=== PATIENT | female | born 1965 | race Caucasian/White ===

== ENCOUNTER 2020-10-08 20:31 | Observation (INO) | payer BC ==
[2020-10-08] MEDS ORDERED: NITROGLYCERIN OINT 1 INCH/GM PACKET TOPICAL STA (20:38)
[2020-10-08] MEDS ORDERED: SODIUM CHLORIDE 0.9% 1,000 ML IV STA (20:38)
--- NOTE | 2020-10-08 20:47 | ED ---
Chest Pain HPI - General Stated Complaint: Chest Pain Time Seen by Provider: 10/08/20 20:31 Source: patient, EMS, RN notes reviewed Mode of arrival: EMS Limitations: no limitations - History of Present Illness Initial Comments: This is a 54-year-old female who presents by EMS complaints of the onset of midsternal chest pain sharp and stabbing in nature 10/10 severity rating to her left shoulder left arm and now to the back. He was given aspirin and sublingual nitroglycerin did improve to about 6/10 no fevers chills cough nausea vomiting or other symptoms she states she has similar symptoms in the past that normally get better with nitro she had a workup for GI and cardiac etiologies the past without cardiac catheterization. He states the etiology was never established. No recent trauma no other complaints she states she just finished dinner when this happened. MD Complaint: chest pain - Related Data Home Medications Medication Instructions Recorded Confirmed ALPRAZolam [Xanax] 0.5 mg PO DAILY PRN 10/08/20 10/08/20 ALPRAZolam [Xanax] 1 mg PO HS 10/08/20 10/08/20 Amitriptyline HCl [Elavil] 75 mg PO HS 10/08/20 10/08/20 DULoxetine HCL [Cymbalta] 60 mg PO HS 10/08/20 10/08/20 Levothyroxine Sodium [Synthroid] 50 mcg PO DAILY 10/08/20 10/08/20 QUEtiapine FUMARATE [SEROquel] 400 mg PO HS 10/08/20 10/08/20 bisacodyL [Dulcolax] 5 mg PO DAILY PRN 10/08/20 10/08/20 metFORMIN HCL ER [Glucophage Xr] 500 mg PO BID 10/08/20 10/08/20 Allergies Allergy/AdvReac Type Severity Reaction Status Date / Time No Known Allergies Allergy Verified 10/08/20 21:18 Review of Systems ROS Statement: Those systems with pertinent positive or pertinent negative responses have been documented in the HPI. ROS Other: All systems not noted in ROS Statement are negative. EKG Findings - EKG Results: EKG: interpreted by DIANA, WNL, sinus rhythm (Normal sinus rhythm was 87 [place] interval 156 QRS 82 QT since QTC 380/[address]-T wave changes.), normal axis, normal QRS, normal ST/T Past Medical History Past Medical History: Diabetes Mellitus Additional Past Medical History / Comment(s): IBS History of Any Multi-Drug Resistant Organisms: None Reported Past Surgical History: Section, Cholecystectomy, Tonsillectomy Past Psychological History: Anxiety, Depression Smoking Status: Never smoker Past Alcohol Use History: Occasional Past Drug Use History: None Reported General Exam - General Exam Comments Initial Comments: This is a well-developed well-nourished awake alert oriented 3 female Limitations: no limitations General appearance: alert, anxious Head exam: Present: atraumatic, normocephalic, normal inspection Eye exam: Present: normal appearance, PERRL, EOMI. Absent: scleral icterus, conjunctival injection, periorbital swelling ENT exam: Present: normal exam, mucous membranes moist Neck exam: Present: normal inspection, full ROM, other (No stridor JVD or bruits). Absent: tenderness, meningismus, lymphadenopathy Respiratory exam: Present: normal lung sounds bilaterally, other ((Anterior chest patient states she feels some discomfort in the back area.). Absent: respiratory distress, wheezes, rales, rhonchi, stridor Cardiovascular Exam: Present: regular rate, normal rhythm, normal heart sounds. Absent: systolic murmur, diastolic murmur, rubs, gallop, clicks GI/Abdominal exam: Present: soft, normal bowel sounds. Absent: distended, tenderness, guarding, rebound, rigid, bruit, pulsatile mass Extremities exam: Present: full ROM, normal capillary refill, other (A small brown tick was noted on the posterior aspect of the right shoulder I did remove this without difficulty. No evidence of any retained foreign matter.). Absent: tenderness, pedal edema, joint swelling, calf tenderness Back exam: Present: normal inspection Neurological exam: Present: alert, oriented X3, CN II-XII intact Psychiatric exam: Present: normal affect, normal mood Skin exam: Present: warm, dry, intact, normal color. Absent: rash Course Vital Signs 10/08/20 10/08/20 20:33 21:36 Temperature 98.0 F Pulse Rate 86 85 Respiratory 20 18 Rate Blood Pressure 109/79 128/79 O2 Sat by Pulse 98 99 Oximetry - Reevaluation(s) Reevaluation #1: 10/08/20 22:25 Patient saw somewhat better but still has some burning chest discomfort. This workup is negative. I did discuss [employer] her she will be admitted with cardiology consultation. Chest Pain MDM - MDM Imaging reviewed no acute findings. The presentation of far is negative for acute findings however the symptoms are consistent with angina. Patient be admitted case discussed with Dr. Mcpherson Critical Care Time Critical Care Time: Yes Total Critical Care Time: 31 Critical Care Time: Consistent with an initial presentation with history physical labs x-rays discussed with paramedics upon arrival reevaluation the patient response to therapy discuss with the patient regarding findings discussion with the main physician admission orders documentation of the above Disposition Clinical Impression: Unstable angina pectoris, Chest pain, Tick bite with subsequent removal of tick Disposition: ADMITTED IP TO THIS HOSP Condition: Fair Referrals: Liu Singh DO [Primary Care Provider] - 1-2 days
[2020-10-08 21:02] LABS: Basophils # (A) 0.1 k/uL (0-0.2); Basophils % (A) 1 %; Eosinophils # (A) 0.3 k/uL (0-0.7); Eosinophils % (A) 3 %; HCT 41.7 % (34.0-46.0); HGB 14.5 gm/dL (11.4-16.0); Lymphocytes # (A) 3.3 k/uL (1.0-4.8); Lymphocytes % (A) 38 %; MCH 29.3 pg (25.0-35.0); MCHC 34.7 g/dL (31.0-37.0); MCV 84.6 fL (80.0-100.0); Mean Platelet Volume 8.1; Monocytes # (A) 0.5 k/uL (0-1.0); Monocytes % (A) 6 %; Neutrophils # (A) 4.2 k/uL (1.3-7.7); Neutrophils % (A) 49 %; Platelet Count 277 k/uL (150-450); RBC 4.94 m/uL (3.80-5.40); RDW 13.5 % (11.5-15.5); WBC 8.5 k/uL (3.8-10.6)
--- NOTE | 2020-10-08 21:07 | XR ---
EXAMINATION TYPE: XR chest 2V DATE OF EXAM: 10/08/2020 COMPARISON: NONE HISTORY: Chest pain TECHNIQUE: 2 views FINDINGS: Heart and mediastinum are normal. Lungs are clear. Diaphragm is normal. Bony thorax is inta ct. IMPRESSION: Normal chest. Normal heart.
[2020-10-08 21:21] LABS: ALT 31 U/L (4-34); AST 86 U/L (14-36); African American GFR (CKD) >90 (>60 ml/min/1.73 sqM); Albumin 4.7 g/dL (3.5-5.0); Alkaline Phosphatase 75 U/L (38-126); Anion Gap 6 mmol/L; Blood Urea Nitrogen 24 mg/dL (7-17); Calcium 9.6 mg/dL (8.4-10.2); Carbon Dioxide 28 mmol/L (22-30); Chloride 104 mmol/L (98-107); Creatine Kinase 85 U/L (30-135); Glucose 125 mg/dL (74-99); Lipase 204 U/L (23-300); Magnesium 2.3 mg/dL (1.6-2.3); Non-African American GFR(CKD) >90 (>60 ml/min/1.73 sqM); Potassium 5.9 mmol/L (3.5-5.1); Sodium 138 mmol/L (137-145); Total Bilirubin 1.2 mg/dL (0.2-1.3); Total Protein 7.5 g/dL (6.3-8.2)
[2020-10-08 21:55] LABS: D-Dimer 0.19 mg/L FEU (<0.60); INR 0.9 (<1.2); Partial Thromboplastin Time 22.4 sec (22.0-30.0)
[2020-10-08] MEDS ORDERED: HEPARIN SODIUM 1,000 UN/ML (10ML VL) IV ONE (22:28)
[2020-10-08] MEDS ORDERED: NITROGLYCERIN SL TABS 0.4 MG TAB SUBLINGUAL PRN (22:28)
[2020-10-08] MEDS ORDERED: bisacodyL 5 MG TABLET.DR PO PRN (22:32)
[2020-10-08] MEDS ORDERED: ALPRAZolam 0.5 MG TAB PO PRN (22:32)
[2020-10-08] MEDS ORDERED: HEPARIN SOD,PORK IN 0.45% NACL 25,000 UNIT in 0.45% NACL 1 250ML.BAG IV SCH (22:45)
--- NOTE | 2020-10-08 23:48 | P.HPIM ---
History of Present Illness H&P Date: 10/08/20 Patient is a 54-year-old female with a PMH of anxiety, depression, type II DM, and hypothyroidism who presented to the emergency room with complaints of chest discomfort. The patient reports that she was in her usual state of health until about 6 PM tonight when she was sitting down watching television and suddenly developed sharp substernal discomfort. There was a pleuritic component to the pain, 10 out of 10, radiating to the left arm, constant, with no alleviating factors. The patient reports that her activated EMS 10 minutes after the onset of her pain since it was not going away. In the ambulance, she was given aspirin and nitroglycerin which she reports significantly relieved her pain which subsequently did not recur. She denied experiencing shortness of breath, nausea, vomiting, diaphoresis, dizziness. At time of interview, she reported no additional pain and had no additional complaints. Denied leg pain, leg swelling, recent travel, fever, chills, cough, abdominal pain, diarrhea. Denied history of blood clots. In the emergency room and EKG revealed normal sinus rhythm at [address]/T-wave changes noted as reviewed by me. Chest x-ray was unremarkable. Laboratory evaluation was remarkable for a potassium of 5.9, BUN 24, glucose 125, AST 86, and troponin 0.017. Review of Systems Pertinent positives and negatives as discussed in HPI, a complete review of systems was performed and all other systems are negative. Past Medical History Past Medical History: Diabetes Mellitus Additional Past Medical History / Comment(s): IBS History of Any Multi-Drug Resistant Organisms: None Reported Past Surgical History: Section, Cholecystectomy, Tonsillectomy Past Psychological History: Anxiety, Depression Smoking Status: Never smoker Past Alcohol Use History: Occasional Past Drug Use History: None Reported Medications and Allergies Home Medications Medication Instructions Recorded Confirmed Type ALPRAZolam [Xanax] 0.5 mg PO DAILY PRN 10/08/20 10/08/20 History ALPRAZolam [Xanax] 1 mg PO HS 10/08/20 10/08/20 History Amitriptyline HCl [Elavil] 75 mg PO HS 10/08/20 10/08/20 History DULoxetine HCL [Cymbalta] 60 mg PO HS 10/08/20 10/08/20 History Levothyroxine Sodium [Synthroid] 50 mcg PO DAILY 10/08/20 10/08/20 History QUEtiapine FUMARATE [SEROquel] 400 mg PO HS 10/08/20 10/08/20 History bisacodyL [Dulcolax] 5 mg PO DAILY PRN 10/08/20 10/08/20 History metFORMIN HCL ER [Glucophage Xr] 500 mg PO BID 10/08/20 10/08/20 History Allergies Allergy/AdvReac Type Severity Reaction Status Date / Time No Known Allergies Allergy Verified 10/08/20 21:18 Physical Exam Vitals: Vital Signs Temp Pulse Resp BP Pulse Ox 10/08/20 22:58 85 16 121/72 96 10/08/20 21:36 85 18 128/79 99 10/08/20 20:33 98.0 F 86 20 109/79 98 Intake and Output 10/08/20 10/08/20 10/09/20 14:59 22:59 06:59 Other: Weight 99.79 kg General: non toxic, no distress, appears at stated age, obese Derm: no unusual rashes/lesions no unusual ecchymoses, warm, dry Head: atraumatic, normocephalic, symmetric Eyes: EOMI, no lid lag, anicteric sclera, pupils equal round reactive to light ENT: Nose and ears atraumatic, no thrush, no pharyngeal erythema Neck: No thyromegaly, no cervical lymphadenopathy, trachea midline, supple Mouth: no lip lesion, mucus membranes moist Cardiovascular: S1S2 reg, no murmur, positive posterior tibial pulse bilateral, no edema, capillary refill less than 2 seconds, no chest wall tenderness on palpation Lungs: CTA bilateral, no rhonchi, no rales , no accessory muscle use Abdominal: soft, nontender to palpation, no guarding, no appreciable organomegaly, normal bowel sounds Ext: no gross muscle atrophy, muscle strength 5 out of 5 in all 4 extremities grossly, no contractures, Neuro: CN II-XI grossly intact, light touch intact all 4 extremities, finger to nose within normal limits, Psych: Alert, oriented, appropriate affect Results CBC & Chem 7: 10/08/20 20:45 10/08/20 20:45 Labs: Abnormal Lab Results - Last 24 Hours (Table) 10/08/20 Range/Units 20:45 Potassium 5.9 H (3.5-5.1) mmol/L BUN 24 H (7-17) mg/dL Glucose 125 H (74-99) mg/dL AST 86 H (14-36) U/L Assessment and Plan Plan: Unstable angina -Cardiology consult -Trend troponin -Cardiac monitoring -Continue with aspirin and Heparin infusion -Blood pressure within normal limits Hyperkalemia -Administer calcium gluconate and Kayexalate -Monitor for now Chronic conditions: Hypothyroidism, depression, Type II DM -Continue with home meds -Check A1c -Hold oral hypoglycemic -Lispro insulin sliding scale with blood glucose monitoring DVT prophylaxis -Heparin infusion The patient is admitted with an anticipated less than 2 midnight stay for evaluation of chest pain CODE STATUS: Full Code Discussed with: Patient Anticipated discharge date: in am Anticipated discharge place: Home A total of 35 minutes was spent on the care of this complex patient more than 50% of the time was spent in counseling and care coordination.
[2020-10-08] MEDS ORDERED: SODIUM POLYSTYRENE SULFONATE 15 GM/60 ML BOTTLE PO ONE (23:59)
[2020-10-09] MEDS ORDERED: CALCIUM GLUCONATE 1 GM in SODIUM CHLORIDE 0.9% 100 ML IVPB ONE (00:15)
[2020-10-09] MEDS: SODIUM CHLORIDE 0.9% 1,000 ML IV SCH ×2 (00:30→20:37)
[2020-10-09] MEDS: DULoxetine HCL 60 MG CAPSULE.DR PO SCH ×2 (00:31→20:36)
[2020-10-09] MEDS: AMITRIPTYLINE HCL 25 MG TAB PO SCH ×2 (00:31→20:36)
[2020-10-09] MEDS: ALPRAZolam 1 MG TAB PO SCH ×2 (00:31→20:37)
[2020-10-09] MEDS: QUEtiapine 400 MG TAB PO SCH ×2 (00:32→20:36)
[2020-10-09] MEDS: NITROGLYCERIN OINT 1 INCH/GM PACKET TOPICAL SCH ×4 (03:20→20:35)
[2020-10-09] MEDS: LEVOTHYROXINE 50 MCG TAB PO SCH (05:38)
[2020-10-09 05:54] LABS: African American GFR (CKD) >90 (>60 ml/min/1.73 sqM); Anion Gap 3 mmol/L; Blood Urea Nitrogen 19 mg/dL (7-17); Carbon Dioxide 28 mmol/L (22-30); Chloride 107 mmol/L (98-107); Cholesterol 171 mg/dL (<200); Glucose 107 mg/dL (74-99); HDL Cholesterol 42 mg/dL (40-60); LDL Cholesterol,Calculated 115 mg/dL (0-99); Non-African American GFR(CKD) 85 (>60 ml/min/1.73 sqM); Potassium 4.1 mmol/L (3.5-5.1); Sodium 138 mmol/L (137-145); Triglycerides 69 mg/dL (<150)
[2020-10-09] MEDS ORDERED: HEPARIN SODIUM 1,000 UN/ML (10ML VL) IV PRN (06:03)
[2020-10-09 07:13] LABS: Glucose,Whole Blood 99 mg/dL (75-99)
[2020-10-09] MEDS: ASPIRIN 325 MG TAB PO SCH (08:38)
--- NOTE | 2020-10-09 08:52 | P.CRDCN ---
History of Present Illness Consult date: 10/09/20 History of present illness: This is a 55-year-old female with history of anxiety, depression, type 2 diabetes mellitus who went on metformin recently, came to the hospital with complaints of chest pain. The pain was in the midsternal area and sharp in nature. There is some radiation of the pain to the left arm. It was not respirophasic. 10 minutes of the onset of the pain, as well as apparently activated EMS. Patient was given aspirin and nitroglycerin in the ambulance with which she got relief of pain. Since then patient hasn't had any recurrence of pain. Her EKGs did not reveal any acute changes and cardiac enzymes have been negative. No history of previous myocardial infarctions. Patient did have some similar chest discomfort in the past but never had any stress tests. She was given some J crackles in the past. She is not a smoker. Some family history of ischemic heart disease in grandparents. At this point patient him up. Patient is going to be evaluated by echocardiogram. She will have a stress echocardiogram tomorrow. Further recommendations depend upon the findings on the above tests. Review of Systems As per the chart Past Medical History Past Medical History: Diabetes Mellitus Additional Past Medical History / Comment(s): IBS, hypothyroidism, vertigo History of Any Multi-Drug Resistant Organisms: None Reported Past Surgical History: Section, Hysterectomy, Tonsillectomy Past Psychological History: Anxiety, Depression Smoking Status: Never smoker Past Alcohol Use History: Occasional Past Drug Use History: None Reported Medications and Allergies Home Medications Medication Instructions Recorded Confirmed Type ALPRAZolam [Xanax] 0.5 mg PO DAILY PRN 10/08/20 10/08/20 History ALPRAZolam [Xanax] 1 mg PO HS 10/08/20 10/08/20 History Amitriptyline HCl [Elavil] 75 mg PO HS 10/08/20 10/08/20 History DULoxetine HCL [Cymbalta] 60 mg PO HS 10/08/20 10/08/20 History Levothyroxine Sodium [Synthroid] 50 mcg PO DAILY 10/08/20 10/08/20 History QUEtiapine FUMARATE [SEROquel] 400 mg PO HS 10/08/20 10/08/20 History bisacodyL [Dulcolax] 5 mg PO DAILY PRN 10/08/20 10/08/20 History metFORMIN HCL ER [Glucophage Xr] 500 mg PO BID 10/08/20 10/08/20 History Allergies Allergy/AdvReac Type Severity Reaction Status Date / Time No Known Allergies Allergy Verified 10/08/20 21:18 Physical Exam Vitals: Vital Signs Temp Pulse Pulse Resp BP BP Pulse Ox 10/09/20 06:50 98.1 F 76 14 108/68 99 10/09/20 02:30 98.2 F 73 16 102/67 98 10/08/20 23:30 98.4 F 85 17 111/66 99 10/08/20 22:58 85 16 121/72 96 10/08/20 21:36 85 18 128/79 99 10/08/20 20:33 98.0 F 86 20 109/79 98 Intake and Output 10/08/20 10/09/20 10/09/20 22:59 06:59 14:59 Intake Total 71.833 Balance 71.833 Intake: Intake, IV Titration 71.833 Amount Heparin Sod,Pork in 0.45% 71.833 NaCl 25,000 unit In 0.45 % NaCl 1 250ml.bag @ 10. 021 UNITS/KG/HR 10 mls/hr IV .Q24H [facility] Rx#: [id number] Other: Voiding Method Toilet # Voids 1 Weight 99.79 kg 99.79 kg GENERAL EXAM: Patient is alert and oriented and doesn't appear to be in any acute distress HEENT: Normocephalic. Normal reaction of pupils, equal size, normal range of extraocular motion. No erythema or exudates in the throat. NECK: No masses, no nuchal rigidity. CHEST: No chest wall deformity. LUNGS: Equal air entry with no crackles or wheeze. HEART: S1 and S2 normal with no audible mumurs or gallops. Regular rhythm, femorals equal on both sides.. ABDOMEN: No hepatosplenomegaly, normal bowel sounds, no guarding or rigidity. SKIN: No rashes CENTRAL NERVOUS SYSTEM: No focal deficits. EXTREMITIES: No cyanosis, clubbing or edema. Results 10/08/20 20:45 10/09/20 04:32 Cardiac Enzymes 10/08/20 10/08/20 10/08/20 Range/Units 20:45 20:45 23:44 AST 86 H (14-36) U/L Troponin I 0.017 <0.012 (0.000-0.034) ng/mL 10/09/20 Range/Units 04:32 AST (14-36) U/L Troponin I <0.012 (0.000-0.034) ng/mL Coagulation 10/08/20 10/09/20 Range/Units 20:45 04:32 PT 10.0 (9.0-12.0) sec APTT 22.4 41.3 H (22.0-30.0) sec Lipids 10/09/20 Range/Units 04:32 Triglycerides 69 (<150) mg/dL Cholesterol 171 (<200) mg/dL HDL Cholesterol 42 (40-60) mg/dL CBC 10/08/20 Range/Units 20:45 WBC 8.5 (3.8-10.6) k/uL RBC 4.94 (3.80-5.40) m/uL Hgb 14.5 (11.4-16.0) gm/dL Hct 41.7 (34.0-46.0) % Plt Count 277 (150-450) k/uL Comprehensive Metabolic Panel 10/08/20 10/09/20 Range/Units 20:45 04:32 Sodium 138 138 (137-145) mmol/L Potassium 5.9 H 4.1 (3.5-5.1) mmol/L Chloride 104 107 (98-107) mmol/L Carbon Dioxide 28 28 (22-30) mmol/L BUN 24 H 19 H (7-17) mg/dL Creatinine 0.73 0.78 (0.52-1.04) mg/dL Glucose 125 H 107 H (74-99) mg/dL Calcium 9.6 9.0 (8.4-10.2) mg/dL AST 86 H (14-36) U/L ALT 31 (4-34) U/L Alkaline Phosphatase 75 (38-126) U/L Total Protein 7.5 (6.3-8.2) g/dL Albumin 4.7 (3.5-5.0) g/dL Current Medications Generic Name Dose Route Start Last Admin Trade Name Freq PRN Reason Stop Dose Admin Alprazolam 0.5 mg 10/08/20 22:32 Alprazolam 0.5 Mg Tab PO DAILY PRN Anxiety Alprazolam 1 mg 10/08/20 23:59 10/09/20 00:31 Alprazolam 1 Mg Tab PO 1 mg HS [facility] Administration Amitriptyline HCl 75 mg 10/08/20 23:59 10/09/20 00:31 Amitriptyline Hcl 25 Mg Tab PO 75 mg HS [facility] Administration Aspirin 325 mg 10/09/20 09:00 10/09/20 08:38 Aspirin 325 Mg Tab PO 325 mg DAILY [facility] Administration Bisacodyl 5 mg 10/08/20 22:32 Bisacodyl 5 Mg Tablet.Dr PO DAILY PRN Constipation Duloxetine HCl 60 mg 10/08/20 23:59 10/09/20 00:31 Duloxetine Hcl 60 Mg Capsule.Dr PO 60 mg HS [facility] Administration Heparin Sodium (Porcine) 0 unit 10/09/20 06:03 10/09/20 06:10 Heparin Sodium 1,000 Un/Ml (10ml Vl) IV 2,500 unit PER PROTOCOL PRN Administration Low PTT Protocol Sodium Chloride 1,000 mls @ 20 mls/hr 10/08/20 22:30 10/09/20 00:30 Saline 0.9% IV 20 mls/hr .Q24H [facility] Administration Heparin Sodium/Sodium Chloride 250 mls @ 10 mls/hr 10/08/20 22:45 10/09/20 06:01 25,000 unit/ Sodium Chloride IV 12 units/kg/hr .Q24H [facility] 11.975 mls/hr Titration Protocol 10.021 UNITS/KG/HR Levothyroxine Sodium 50 mcg 10/09/20 06:30 10/09/20 05:38 Levothyroxine 50 Mcg Tab PO 50 mcg DAILY@0630 [facility] Administration Nitroglycerin 0.4 mg 10/08/20 22:28 Nitroglycerin Sl Tabs 0.4 Mg Tab SUBLINGUAL Q5M PRN Chest Pain Nitroglycerin 1 inch 10/09/20 00:00 10/09/20 05:39 Nitroglycerin Oint 1 Inch/Gm Packet TOPICAL Not Given Q6HR [facility] Quetiapine Fumarate 400 mg 10/08/20 23:59 10/09/20 00:32 Quetiapine 400 Mg Tab PO 400 mg HS [facility] Administration Intake and Output 10/08/20 10/09/20 10/09/20 22:59 06:59 14:59 Intake Total 71.833 Balance 71.833 Intake: Intake, IV Titration 71.833 Amount Heparin Sod,Pork in 0.45% 71.833 NaCl 25,000 unit In 0.45 % NaCl 1 250ml.bag @ 10. 021 UNITS/KG/HR 10 mls/hr IV .Q24H [facility] Rx#: [id number] Other: Voiding Method Toilet # Voids 1 Weight 99.79 kg 99.79 kg 10/08/20 20:45 10/09/20 04:32 EKG Interpretations (text) Sinus rhythm Assessment and Plan (1) Diabetes mellitus Current Visit: Yes Status: Acute Code(s): E11.9 - TYPE 2 DIABETES MELLITUS WITHOUT COMPLICATIONS SNOMED Code(s): 84694715 (2) Chest pain Current Visit: Yes Status: Acute Code(s): R07.9 - CHEST PAIN, UNSPECIFIED SNOMED Code(s): 90396730 (3) Obesity Current Visit: Yes Status: Acute Code(s): E66.9 - OBESITY, UNSPECIFIED SNOMED Code(s): 513696872 Plan: Patient will be evaluated by echocardiogram and also stress echo. If stress echo is negative, patient should continue on this factor modification. If the stress echo is positive, further evaluation by cardiac catheterization.
[2020-10-09] MEDS ORDERED: metFORMIN 500 MG TAB PO SCH (09:00)
[2020-10-09 12:03] LABS: Glucose,Whole Blood 95 mg/dL (75-99)
[2020-10-09 14:19] LABS: Hemoglobin A1C 5.9 % (4.0-6.0)
--- NOTE | 2020-10-09 15:22 | P.PN ---
Subjective Progress Note Date: 10/09/20 (delayed charting seen at 1210) Principal diagnosis: chest pain Patient is a 54-year-old female with anxiety, depression, type 2 diabetes, and hypothyroidism who presented to the emergency department with chest pain. In the ER she underwent an extensive evaluation. Her EKG was nonischemic. Initial troponin was negative. She was admitted for chest pain is. Her troponins remained negative. She was seen by cardiology. Plan is for stress test in a.m. Patient seen and examined at bedside. She denies any chest pain, shortness breath, nausea, vomiting, headache, numbness/tingling. General: Ill appearing, no distress, appears at stated age Derm: warm, dry Head: atraumatic, normocephalic, symmetric Eyes: EOMI, no lid lag, anicteric sclera Mouth: no lip lesion, mucus membranes moist Cardiovascular: S1S2 reg, no murmur, positive posterior tibial pulse bilateral, Lungs: CTA bilateral, no rhonchi, no rales , no accessory muscle use Abdominal: soft, nontender to palpation, no guarding, no appreciable organomegaly Ext: no gross muscle atrophy, no edema, no contractures Neuro: CN II-XI grossly intact, no focal neuro deficits Psych: Alert, oriented, appropriate affect Unstable angina - Continue with aspirin, heparin drip, Lipitor -Cardiology respirations appreciated: Plan is for stress test in a.m. -Telemetry Diabetes mellitus type 2 -Hold metformin -Sliding-scale insulin -Follow blood sugars -A1c 5.9 Hypothyroidism -Synthroid Anxiety and depression -Seroquel and Cymbalta IBS -Elavil Obesity with BMI 36.6 -Structured outpatient weight loss DVT prophylaxis:heparin gtt Discussed with: patient, nursing Anticipated discharge: pening stress test Anticipated discharge place: home A total of 25 minutes was spent on the care of this complex patient more than 50% of the time was spent in counseling and care coordination. Objective - Vital Signs Vital signs: Vital Signs Temp 98.4 F 10/09/20 13:00 Pulse 83 10/09/20 13:00 Resp 14 10/09/20 13:00 BP 104/68 10/09/20 13:00 Pulse Ox 97 10/09/20 13:00 Intake & Output 10/08/20 10/09/20 10/09/20 18:59 06:59 18:59 Intake Total 71.833 Balance 71.833 Weight 99.79 kg Intake: Intake, IV Titration 71.833 Amount Heparin Sod,Pork in 0.45% 71.833 NaCl 25,000 unit In 0.45 % NaCl 1 250ml.bag @ 10. 021 UNITS/KG/HR 10 mls/hr IV .Q24H [facility] Rx#: [id number] Other: Voiding Method Toilet Toilet # Voids 1 1 - Labs CBC & Chem 7: 10/08/20 20:45 10/09/20 04:32 Labs: Abnormal Lab Results - Last 24 Hours (Table) 10/08/20 10/09/20 10/09/20 Range/Units 20:45 04:32 04:32 APTT 41.3 H (22.0-30.0) sec Potassium 5.9 H (3.5-5.1) mmol/L BUN 24 H 19 H (7-17) mg/dL Glucose 125 H 107 H (74-99) mg/dL AST 86 H (14-36) U/L LDL Cholesterol, Calc 115 H (0-99) mg/dL
[2020-10-09 17:13] LABS: Glucose,Whole Blood 103 mg/dL (75-99)
[2020-10-09 20:44] LABS: Glucose,Whole Blood 127 mg/dL (75-99)
[2020-10-09] MEDS ORDERED: ALPRAZolam 1 MG TAB PO SCH (21:00)
[2020-10-09] MEDS ORDERED: AMITRIPTYLINE HCL 25 MG TAB PO SCH (21:00)
[2020-10-09] MEDS ORDERED: ATORVASTATIN 40 MG TAB PO SCH (21:00)
[2020-10-09] MEDS ORDERED: QUEtiapine 400 MG TAB PO SCH (21:00)
[2020-10-09] MEDS ORDERED: DULoxetine HCL 60 MG CAPSULE.DR PO SCH (21:00)
[2020-10-10] MEDS: NITROGLYCERIN OINT 1 INCH/GM PACKET TOPICAL SCH ×2 (04:27→04:28)
[2020-10-10] MEDS: LEVOTHYROXINE 50 MCG TAB PO SCH (05:37)
[2020-10-10 07:14] LABS: Glucose,Whole Blood 106 mg/dL (75-99)
[2020-10-10] MEDS: ASPIRIN 325 MG TAB PO SCH (08:40)
--- NOTE | 2020-10-10 11:20 | P.PN ---
Subjective This is a pleasant 55-year-old female past medical history significant for diabetes mellitus, anxiety and depression. Blood pressure today 114/79 heart rate 78 afebrile and maintaining oxygen saturation on room air. Telemetry tracings reveal sinus mechanism with no acute arrhythmia noted. No further symptoms of chest pain. Breathing is stable. GENERAL: Well-appearing, well-nourished and in no acute distress. NECK: Supple without JVD or thyromegaly. LUNGS: Breath sounds clear to auscultation bilaterally. Respiration equal and unlabored. No wheezes, rales or rhonchi. HEART: Regular rate and rhythm without murmurs, rubs or gallops. S1 and S2 heard. EXTREMITIES: Normal range of motion, no edema. No clubbing or cyanosis. Peripheral pulses intact. ASSESSMENT Chest pain Hyperkalemia, resolved Diabetes mellitus Hypothyroidism Dyslipidemia, target LDL less than 100. Anxiety/depression Obesity, BMI 36 PLAN Proceed with stress test as ordered. If abnormal we will consider coronary angiography. If normal she can be discharged home from a cardiac perspective. Nurse Practitioner note has been reviewed, I agree with a documented findings and plan of care. Patient was seen and examined. Objective - Vital Signs Vital signs: Vital Signs Temp 98.4 F 10/10/20 07:00 Pulse 78 10/10/20 07:00 Resp 17 10/10/20 07:00 BP 114/79 10/10/20 07:00 Pulse Ox 100 10/10/20 07:00 Intake & Output 10/09/20 10/10/20 10/10/20 18:59 06:59 18:59 Intake Total 350 Balance 350 Intake: Oral 350 Other: Voiding Method Toilet Toilet # Voids 1 3 - Labs CBC & Chem 7: 10/08/20 20:45 10/09/20 04:32 Labs: Abnormal Lab Results - Last 24 Hours (Table) 10/09/20 10/09/20 10/10/20 Range/Units 17:06 20:43 07:13 POC Glucose (mg/dL) 103 H 127 H 106 H (75-99) mg/dL
[2020-10-10 12:26] LABS: Glucose,Whole Blood 119 mg/dL (75-99)
--- NOTE | 2020-10-10 12:41 | P.STRESS ---
- Stress Test Note Stress Test Results/Findings: Exam Performed: stress echo exercise Exam Date: 10/10/20 Reason for Exam: CP Height: 5 ft 5 in Weight: 99.79 kg Protocol: STRESS ECHO Stage: III Duration of Exercise: 7.44 Resting Heart Rate: 88 Resting Blood Pressure: 152/85 Maximum Achieved Heart Rate: 144 Maximum Achieved Blood Pressure: 186/60 85% PMHR: 139 100% PMHR: 163 METS: 9.1 Technologist Comment: Stress Test Results/Findings: Patient underwent exercise stress echo with a [place] protocol treadmill stress test. Patient exercised into Stage 2 for a total of 7 minutes 44 seconds reaching a total of 9.1 METS. Patient's maximum heart rate was 144 which represented 88 % age-predicted maximum heart rate. Stress EKG portion: At baseline patient's EKG showed normal sinus rhythm, normal axis, no significant ST or T wave abnormalities. At peak exercise, EKG showed no significant change from baseline. Stress echo portion: 2-D echocardiogram was performed in the parasternal long, personal short, apical 2 and apical four-chamber views at rest, peak exercise and in recovery. At baseline, echocardiogram showed left ventricular ejection fraction 60 % without wall motion abnormalities. With peak exercise, echocardiogram shows improvement in left ventricular ejection fraction, increase contractility, decrease in left ventricular dimension without wall motion abnormalities consistent with a normal response to exercise. Conclusions: 1. Normal EKG and echo response to exercise without evidence of inducible ischemia. 2. Fair exercise capacity.
[2020-10-10 15:24] VITALS: BP 97/64; PULSE 87; RESP 16; TEMP 98.8
--- NOTE | 2020-10-10 19:39 | P.DS ---
Providers Date of admission: 10/08/20 22:28 Expected date of discharge: 10/10/20 Attending physician: Ritesh Mcpherson MD Consults: 10/08/20 22:28 Consult Physician Urgent Consulting Provider: Bairon Almonte Consult Reason/Comments: Chest pain Do you want consulting provider notified?: Yes Primary care physician: [place] Hospital Course: Discharge Diagnosis: Noncardiac chest pain Diabetes mellitus 2 Hypothyroidism Anxiety and depression IBS Obesity with BMI 36.6 Hospital Course: Patient is a 54-year-old female with anxiety, depression, type 2 diabetes, and hypothyroidism who presented to the emergency department with chest pain, which resolved with nitro. In the ER she underwent an extensive evaluation. Her EKG was nonischemic. Initial troponin was negative. Chest x-ray was negative. She was admitted for chest pain. Her troponins remained negative. She was seen by cardiology. She underwent exercise stress echo which showed fair exercise capacity and no evidence of inducible ischemia. She is determined stable for discharge home. Follow-up: Primary care physician in 1-2 days for noncardiac causes of chest pain Patient seen and examined at bedside. No chest pain, no shortness of breath, no nausea, no vomiting. Concerned about what could be causing her chest pain as her stress was negative. We discussed the possibilities of GERD she reports recent upper endoscopy, no history of neck or shoulder dysfunction. We also discussed possible esophageal spasm as her chest pain improved with nitro and she had a negative stress test Vital signs reviewed and stable. General: non toxic, no distress, appears at stated age Derm: warm, dry Head: atraumatic, normocephalic, symmetric Eyes: EOMI, no lid lag, anicteric sclera Mouth: no lip lesion, mucus membranes moist Cardiovascular: S1S2 reg, no murmur, positive posterior tibial pulse bilateral, Lungs: CTA bilateral, no rhonchi, no rales , no accessory muscle use Abdominal: soft, nontender to palpation, no guarding, no appreciable organomegaly Ext: no gross muscle atrophy, no edema, no contractures Neuro: CN II-XI grossly intact, no focal neuro deficits Psych: Alert, oriented, appropriate affect A total of 25 minutes of time were spent preparing this complex discharge summary . Patient Condition at Discharge: Stable Plan - Discharge Summary New Discharge Prescriptions: Continue DULoxetine HCL [Cymbalta] 60 mg PO HS ALPRAZolam [Xanax] 1 mg PO HS ALPRAZolam [Xanax] 0.5 mg PO DAILY PRN PRN Reason: Anxiety metFORMIN HCL ER [Glucophage Xr] 500 mg PO BID bisacodyL [Dulcolax] 5 mg PO DAILY PRN PRN Reason: Constipation QUEtiapine FUMARATE [SEROquel] 400 mg PO HS Levothyroxine Sodium [Synthroid] 50 mcg PO DAILY Amitriptyline HCl [Elavil] 75 mg PO HS Discharge Medication List ALPRAZolam [Xanax] 0.5 mg PO DAILY PRN 10/08/20 [History] ALPRAZolam [Xanax] 1 mg PO HS 10/08/20 [History] Amitriptyline HCl [Elavil] 75 mg PO HS 10/08/20 [History] DULoxetine HCL [Cymbalta] 60 mg PO HS 10/08/20 [History] Levothyroxine Sodium [Synthroid] 50 mcg PO DAILY 10/08/20 [History] QUEtiapine FUMARATE [SEROquel] 400 mg PO HS 10/08/20 [History] bisacodyL [Dulcolax] 5 mg PO DAILY PRN 10/08/20 [History] metFORMIN HCL ER [Glucophage Xr] 500 mg PO BID 10/08/20 [History] Follow up Appointment(s)/Referral(s): Freedom Zaman MD [STAFF PHYSICIAN] - 2 Weeks Liu Singh DO [Primary Care Provider] - 1-2 days Patient Instructions/Handouts: Chest Pain (DC), Stress Echocardiogram (DC) Activity/Diet/Wound Care/Special Instructions: Activity: as tolerated Diet: carb consistent Discharge Disposition: HOME SELF-CARE
[2020-10-11] MEDS ORDERED: ASPIRIN 81 MG PO SCH (09:00)
== END 2020-10-10 16:05 | disposition home or self-care (01) ==
LOC: SUPCPDRO 20:31 → EC 20:31 → 6NMEDSUR 22:28
PROVIDERS: ADMIT Internal Medicine; ATTEND Internal Medicine
DX: R07.2 Precordial pain (principal); E11.9 Type 2 diabetes mellitus without complications; E03.9 Hypothyroidism, unspecified; F41.9 Anxiety disorder, unspecified; F32.9 Major depressive disorder, single episode, unspecified; K58.9 Irritable bowel syndrome, unspecified; E66.9 Obesity, unspecified; Z68.36 Body mass index [BMI] 36.0-36.9, adult; M79.602 Pain in left arm; S40.261A Insect bite (nonvenomous) of right shoulder, initial encounter; W57.XXXA Bitten or stung by nonvenomous insect and other nonvenomous arthropods, initial encounter; E78.5 Hyperlipidemia, unspecified; E87.5 Hyperkalemia; Z20.822 Contact with and (suspected) exposure to COVID-19; Z90.710 Acquired absence of both cervix and uterus; Z79.890 Hormone replacement therapy; Z79.84 Long term (current) use of oral hypoglycemic drugs; Z90.49 Acquired absence of other specified parts of digestive tract
CPT/HCPCS: 96365; 96366 ×2; 96368; 99285; 36415; 93005; 93351; 85379; 83880; 80061; 80053; 80048; 82550; 83690; 83735; 84484 ×2; 85025; 85610; 85730 ×2; 83036; 87636; 71046; G0378 ×3; J1644 ×3; J0610